=== PATIENT | male | born 1970 | race Hispanic/Latino ===

== ENCOUNTER 2017-08-13 11:07 | Outpatient (CLI) | payer OTHER | END 2017-08-13 11:08 | disposition home or self-care (01) | LOC: BICRAD 11:07 | PROVIDERS: ATTEND Urology | DX: N20.0 Calculus of kidney (principal) | CPT/HCPCS: 74018 ==

== ENCOUNTER 2018-11-30 09:48 | Outpatient (CLI) | payer OTHER ==
--- NOTE | 2018-11-30 10:57 | RAD ---
ABDOMEN 1 VIEW: Date: 11/30/18 HISTORY: History of renal stones. FINDINGS: Again noted is an abnormal opacity in the region of the right kidney suspicious for a renal calculus. Moderate fecal material in the colon certainly somewhat obscures the kidneys bilaterally. No overt u reteral calculus. IMPRESSION: Evidence for nonobstructing right renal calculus, showing little change from prior study. POS: [facility]
== END 2018-11-30 09:49 | disposition home or self-care (01) ==
LOC: BICRAD 09:48
PROVIDERS: ATTEND Urology
DX: N20.0 Calculus of kidney (principal); R97.20 Elevated prostate specific antigen [PSA]
CPT/HCPCS: 74018

== ENCOUNTER 2020-01-19 08:30 | Outpatient (CLI) | payer OTHER ==
--- NOTE | 2020-01-19 09:34 | CT ---
CT Stone Protocol: 01/19/2020 12:00 AM HISTORY: Kidney stones COMPARISON: [facility]UB 11/30/2018 TECHNIQUE: Multiple contiguous axial images were obtained and a CT of the abdomen and pelvis without IV contrast . Coronal and sagittal reformats were performed. FINDINGS: This examination is limited for the evaluation of solid organs and vascular structures due to the lac k of intravenous contrast. Lower Chest: within normal limits. Abdomen: Liver: within normal limits. Bile Ducts: Normal caliber. Gallbladder: No calcified gallstones. Normal caliber wall. Pancreas: within normal limits. Spleen: within normal limits. Adrenals: within normal limits. Kidneys: Minimal right hydronephrosis. No left hydronephrosis. Pelvis: Reproductive Organs: No pelvic masses. Ureters: 9 to 10 mm calcification in the distal right ureter with minimal right hydroureter. Bladder: within normal limits. Bowel: Normal caliber. Normal appendix. Mesenteric Lymph Nodes: No enlarged mesenteric lymph nodes. Peritoneum: No ascites or free air, no fluid collection. Vessels: Normal caliber aorta Retroperitoneum: within normal limits. Abdominal Wall: within normal limits. Bones: Unremarkable. IMPRESSION: Right distal ureteral calcification
== END 2020-01-19 08:31 | disposition home or self-care (01) ==
LOC: BICCT 08:30
PROVIDERS: ATTEND Urology
DX: N20.0 Calculus of kidney (principal); N28.89 Other specified disorders of kidney and ureter
CPT/HCPCS: 74176

== ENCOUNTER 2020-01-27 05:44 | Outpatient (CLI) | payer OTHER, SELFPAY ==
[2020-01-27 10:23] LABS: #Basophils 0.1 thou/uL (0.0-0.2); #Eosinphils 0.1 thou/uL (0.0-0.7); #Lymphocytes 2.3 thou/uL (1.20-3.40); #Monocytes 0.5 thou/uL (0.11-0.59); #Neutrophils 3.9 thou/uL (1.40-6.50); %Basophils 1.1 % (0.0-1.0); %Eosinophils 1.2 % (0.0-10.0); %Lymphocytes 32.9 % (21.0-51.0); %Monocytes 7.4 % (0.0-10.0); %Neutrophils 57.3 % (42.0-75.0); Mean Corpuscular HGB CONC 33.3 g/dL (32.0-36.0); Mean Corpuscular Hemoglobin 30.5 pg (27.0-31.0); Mean Corpuscular Volume 91.7 fL (78.0-98.0); Mean Platelet Volume 8.4 fL (7.4-10.4); Platelet Count 219 thou/uL (130-400); RBC Distribution Width 12.2 % (11.5-14.5); Red Blood Cell (RBC) Count 5.25 mill/uL (4.70-6.10); White Blood Cell (WBC) Count 6.9 thou/uL (4.8-10.8)
[2020-01-27 10:46] LABS: Anion Gap 10 mmol/L (10-20); BUN (Urea Nitrogen) 16 mg/dL (8.9-20.6); Calc. Creatinine Clearance 0 mL/min (70-130); Calcium 9.1 mg/dL (7.8-10.44); Carbon Dioxide 28 mmol/L (22-29); Chloride 104 mmol/L (98-107); Estimated GFR-MDRD 89; Glucose 81 mg/dL (70-105); Potassium 3.9 mmol/L (3.5-5.1); Sodium 138 mmol/L (136-145)
[2020-01-28 16:02] LABS: SARS-CoV-2 MS2 Positive; SARS-CoV-2 N Gene Negative; SARS-CoV-2 S Gene Negative; SARS-CoV-2 orf1ab Negative
== END 2020-01-27 05:45 | disposition home or self-care (01) ==
LOC: LABBT 05:44
PROVIDERS: ATTEND Urology
DX: Z01.812 Encounter for preprocedural laboratory examination (principal); Z11.59 Encounter for screening for other viral diseases; N20.0 Calculus of kidney
CPT/HCPCS: 80048; 85025; 85610; 85730; 87635; U0003

== ENCOUNTER 2020-01-31 06:09 | Day surgery (SDC) | payer OTHER ==
[2020-01-31] MEDS ORDERED: Fentanyl 100 MCG/2 ML VIAL ONE (06:59)
[2020-01-31] MEDS ORDERED: Lidocaine 2% Jelly 5 ML TUBE ONE (06:59)
[2020-01-31] MEDS ORDERED: Iopamidol 50 ML FS ONE (07:12)
[2020-01-31] MEDS ORDERED: Levofloxacin 500 mg/D5W 100 ml Premix Bag ONE (07:25)
--- NOTE | 2020-01-31 07:38 | RAD ---
Abdomen one view HISTORY: Ureteral calculus. Preop. COMPARISON: CT 01/19/2020. FINDINGS: Visualized bowel gas pattern is nonspecific. Projecting over the right lower retroperitoneum, immediately lateral to the right side of the lower s acrum, a lobular oval calcification correlates with the 1.0 cm oval distal right ureteral calculus detailed on recent CT exam. A second, tiny rounded calcification immediately lateral to the larger is favored to represent a separate, but immediately adjacent stone within the distal right ureter. No new abnormalities are evident. IMPRESSION : Distal right ureteral calculi.
[2020-01-31] MEDS ORDERED: Phenazopyridine HCl 97.5 MG TABLET ONE (08:50)
--- NOTE | 2020-01-31 09:29 | OP ---
DATE OF PROCEDURE: 01/31/2020 PREOPERATIVE DIAGNOSIS: A 49-year-old male with history of right distal 10 mm ureteral calculi with non-progression. POSTOPERATIVE DIAGNOSIS: A 49-year-old male with history of right distal 10 mm ureteral calculi with non-progression. PROCEDURES PERFORMED: Cystoscopy, right retrograde, 6 x 28 double-J ureteral stent with Dangler, balloon dilatation of the distal ureter, ureteroscopy, laser lithotripsy, basket extraction of stone fragments. ANESTHESIA: General. COMPLICATIONS: None apparent. DISPOSITION: To recovery room in stable condition. ESTIMATED BLOOD LOSS: Minimal. SPECIMEN: Stone fragments for chemical analysis. INDICATIONS FOR PROCEDURE AND HISTORY: Mr. Carlton is a 49-year-old pleasant male, previously followed by Dr. Richardson for history of BPH, urolithiasis. The patient is on tamsulosin for BPH symptoms. He presented with persistent stone nidus of the right distal ureter with nonprogression. He has had this stone for a few weeks with non-progression and desires to proceed with ureteroscopy, laser lithotripsy. He did have some stent stone discomfort over the weekend, however, adequately controlled. His labs are unremarkable, and presents today for ureteroscopy and laser lithotripsy. Risks and complications of the procedure were reviewed with him in detail including, but not limited to: Bleeding, pain, infection, injury to adjacent organs, ureteral, renal, or bladder injury, stricture formation. All questions were answered to his satisfaction, and desired to proceed. INTRAOPERATIVE FINDINGS: 1. Large right distal ureteral calculi about 3 cm proximal to the intramural ureter. 2. Mild bilobar hyperplasia of the prostate, high median bar. 3. Incidental left lateral small diverticulum, near the left UO, however, not quite a Hutch diverticulum. The small diverticulum is about 8 mm with wide os. No bladder tumors. No bladder stones. 4. Mild resistance passing a 21-Nepalese cystoscope with the level of the fossa navicularis. DESCRIPTION OF PROCEDURE: After an informed consent was signed, the patient was taken to the operating room, placed in a dorsal lithotomy position with the genital area prepped and draped in the usual surgical sterile fashion. A 21-Nepalese cystoscope was utilized for cystoscopy. There was mild resistance passing at the level of the fossa navicularis, however, passed atraumatically. The penile-bulbar urethra was grossly unremarkable with no evidence of stricture. Bilobar hyperplasia of the prostate was noted. This was mild, he did have a high median bar component. Bladder was entered, which demonstrated the UOs about 3 to 4 mm proximal to the bladder neck with no evidence of intravesical median lobe. Incidentally noted was a small left lateral diverticulum about 8 mm with wide os. This was about 2 cm superior to the left ureteral orifice. An open-ended catheter was utilized to intubate the right UO, and a retrograde pyelogram demonstrated a filling defect in a radiopaque stone in the level of the distal ureter about 2 to 3 cm proximal to the left UO. At this time, a 0.035 Sensor wire was passed into the right upper kidney without significant issues. I did dilate his intramural ureter just to the level of the stone with a [employer] 12-Nepalese 4-cm balloon. After subsequent dilatation, the balloon was completely deflated, and we passed the rigid ureteroscope, which passed without significant issues, and the stone was easily engaged. Using 365 micron laser fiber at 1.0 joule in dust setting, we fragmented the stone into multiple stone debris. Basket extraction was performed, evacuating all stone debris, and there was endoscopic clearance noted. The stone did demonstrate reactive bullous edema of the stone due to chronic stone embedment. The stone was easily laser lithotripsied off the mucosa. However, he does have some mucosal edema consistent with chronic stone in this region consistent with his history. After all stone fragments evacuated, a 6 x 28 double-J ureteral stent was passed without difficulty, and Dangler was left in situ. He tolerated the procedure well, and transported to the recovery room in stable condition. He was provided ciprofloxacin for course of 7 days, Azo p.r.n., Ditropan 5 mg every 8 hours p.r.n. bladder spasm, tramadol 50 mg #30. He is to continue his home dose of Flomax. He will come in next Friday, February 06 at 9 a.m. for nurse visit stent pull on Dangler. A subsequent followup with me to review pathology of the stone analysis is provided on February 28 at 9 a.m. Job ID: [id number]
--- NOTE | 2020-01-31 10:56 | RAD ---
RETROGRADE PYELOGRAM: Date: 01/31/2020 HISTORY: Right ureteral calculus. FINDINGS: Four portable fluoroscopic spot images demonstrate injection of the right ureter with a filling defec t in the distal right ureter evidence for distal right ureteral calculus. Ureteral stent is placed. IMPRESSION: Right distal ureteral calculus. Right ureteral stent placed. POS: [facility]
[2020-01-31] MEDS ORDERED: Dexamethasone 20 MG/5 ML VIAL ONE (11:00)
[2020-01-31] MEDS ORDERED: Succinylcholine Chloride 20 MG/ML 10 ml SYRINGE FS ONE (11:00)
[2020-01-31] MEDS ORDERED: Rocuronium Bromide 10 MG/ML (10ML VIAL) ONE (11:00)
[2020-01-31] MEDS ORDERED: Ondansetron PF 4 MG/2 ML Vial ONE (11:00)
[2020-01-31] MEDS ORDERED: Lidocaine 1% PF 5 ML VIAL ONE (11:00)
[2020-01-31] MEDS ORDERED: Glycopyrrolate 0.2 MG/ML 5 ML SYRINGE ONE (11:00)
[2020-01-31] MEDS ORDERED: PROPOFOL 200 MG/20 ML VIAL ONE (11:00)
[2020-01-31] MEDS ORDERED: Ketorolac Tromethamine 30 MG/ML VIAL ONE (11:00)
== END 2020-01-31 10:30 | disposition home or self-care (01) ==
LOC: SDC 06:09
PROVIDERS: ATTEND Urology
PROC: 0TC68ZZ Extirpation of Matter from Right Ureter, Via Natural or Artificial Opening Endoscopic (ICD-10-PCS; principal; 2020-01-31)
PROC: 0T768DZ Dilation of Right Ureter with Intraluminal Device, Via Natural or Artificial Opening Endoscopic (ICD-10-PCS; principal; 2020-01-31)
DX: N20.1 Calculus of ureter (principal); N32.3 Diverticulum of bladder; N40.1 Benign prostatic hyperplasia with lower urinary tract symptoms; R35.0 Frequency of micturition; R31.29 Other microscopic hematuria; Z79.899 Other long term (current) drug therapy
CPT/HCPCS: 74018; 74420; 82365; 88300; J1100; J1885; J1956; J2001; J2405; J2704; J3010; Q9967

== ENCOUNTER 2025-04-22 10:53 | Outpatient (CLI) | payer OTHER | END 2025-04-22 10:54 | disposition home or self-care (01) | LOC: BICRAD 10:53 | PROVIDERS: ATTEND Urology | DX: N20.0 Calculus of kidney (principal) | CPT/HCPCS: 74018 ==